=== PATIENT | female | born 1955 | race Caucasian/White ===

== ENCOUNTER → 2024-12-03 | Outpatient (CLI) | payer MEDICARE ==
[2024-12-09 18:07] LABS: HDL-P (TOTAL) 40.4 umol/L (>=30.5); LDL SIZE 21.9 nm (>20.5)
== END ==
LOC: M LAB 13:02
PROVIDERS: ATTEND Nurse Practitioner Family
DX: E78.2 Mixed hyperlipidemia (principal); Z13.220 Encounter for screening for lipoid disorders